=== PATIENT | male | born 1940 | race Caucasian/White ===

== ENCOUNTER 2021-08-12 18:05 | Emergency (ER) | payer MEDICARE, OTHER ==
[~2021-08-12] VITALS: Ht 165.1 cm; Wt 73.0 kg
--- NOTE | 2021-08-12 18:05 | NUR ---
PT BIB[facility] 102 FROM HOME C/O UNABLE TO URINATE X 2 DAYS. PT IS AAOX2, NOT IN RESPIRATORY DISTRESS, V/S STABLE, KEPT RESTED AND COMFORTABLE. WILL CONTINUE TO MONITOR.
--- NOTE | 2021-08-12 18:17 | NUR ---
AT BEDSIDE FOR EVAL.
[2021-08-12] MEDS ORDERED: LIDOCAINE 2% JEL UROJET 10 ML MM ONE (18:40)
--- NOTE | 2021-08-12 18:40 | NUR ---
[facility] CATH INSERTED. URINE SPECIMEN COLLECTED AND SENT TO LAB.
--- NOTE | 2021-08-12 18:50 | NUR ---
IV LINE ESTABLISHED BLOOD DRAWN AND SENT TO LAB.
[2021-08-12 19:46] LABS: CALCIUM, SERUM 8.4 mg/dL (8.5-10.1); CREATININE 0.8 mg/dL (0.6-1.3)
--- NOTE | 2021-08-12 19:47 | NUR ---
NAOMY [facility]A FOR UPDATES
[2021-08-12 19:55] LABS: BILIRUBIN,URINE NEGATIVE (NEGATIVE); COLOR,URINE YELLOW (YELLOW); LEUKOCYTE ESTERASE ,URINE NEGATIVE (NEGATIVE); NITRITE, URINE NEGATIVE (NEGATIVE); PROTEIN,URINE NEGATIVE (NEGATIVE); UGLUCOSE NEGATIVE (NEGATIVE); UROBILINOGEN,URINE 0.2 EU/dL (0.2)
[2021-08-12 20:14] LABS: BACTERIA,URINE None seen /HPF (None Seen); CALCIUM OXALATE CRYSTALS,UR Few /HPF (None Seen); SQUAMOUS EPITHELIAL CELL,UR 0-2 /HPF (None Seen); WBC,URINE 0-2 /HPF (0-3)
[2021-08-12 20:18] LABS: BASOPHILS % (AUTO) 0.5 % (0.0-2.0); EOSINOPHILS % (AUTO) 5.5 % (0.0-6.0); HEMATOCRIT 38 % (39-51); LYMPHOCYTES # (AUTO) 1.2 K/uL (0.8-4.8); LYMPHOCYTES % (AUTO) 22.9 % (20.0-44.0); MEAN CORPUSCULAR HGB CONC 34 g/dl (31.0-36.0); MEAN CORPUSCULAR VOLUME 88 fL (80-96); MONOCYTES # (AUTO) 0.5 K/uL (0.1-1.30); MONOCYTES % (AUTO) 9.8 % (2.0-12.0); NEUTROPHILS # (AUTO) 3.3 K/uL (1.8-8.9); NEUTROPHILS % (AUTO) 61.3 % (43.0-81.0); PLATELET COUNT (AUTO) 157 K/uL (150-450); RED BLOOD CELL COUNT(AUTO) 4.36 MIL/uL (4.5-6.0); WHITE BLOOD COUNT (AUTO) 5.4 K/uL (4.3-11.0)
--- NOTE | 2021-08-12 21:27 | NUR ---
SPOKE WITH CRISPIN MORALEZ REGARDING PT DISCHARGE INSTRUCTIONS. PT WILL BE SENT VIA TRANSPORT.
--- NOTE | 2021-08-12 21:34 | NUR ---
[facility] ETA 45MIN
--- NOTE | 2021-08-12 22:20 | NUR ---
[facility] AT BEDSIDE [facility] TRANSPORT BACK TO HIS RESIDENCE. REPORT GIVEN. PT IS IN STABLE CONDITION FOR TRANSPORT
[2021-08-12 22:23] VITALS: BP 110/70
== END 2021-08-12 22:46 | disposition home or self-care (01) ==
LOC: ER 18:10
DX: R33.9 Retention of urine, unspecified (principal); Z86.73 Personal history of transient ischemic attack (TIA), and cerebral infarction without residual deficits
CPT/HCPCS: 36415; 80048; 81001; 85025; 87086; 99283; J3490